=== PATIENT | male | born 1950 | race Caucasian/White ===

== ENCOUNTER → 2019-06-28 | Outpatient (CLI) | payer MEDICARE | END | disposition home or self-care (01) | LOC: SHCH 11:04 | PROVIDERS: ATTEND Internal Medicine Cardiovascular Disease | DX: I08.0 Rheumatic disorders of both mitral and aortic valves (principal); I25.10 Atherosclerotic heart disease of native coronary artery without angina pectoris; I42.9 Cardiomyopathy, unspecified; Z95.1 Presence of aortocoronary bypass graft | CPT/HCPCS: 93306 ==

== ENCOUNTER 2021-05-29 15:23 | Observation (INO) | payer MEDICARE ==
[~2021-05-29] VITALS: Ht 175.3 cm; Wt 78.3 kg
[2021-05-29] MEDS: FAMOTIDINE 20MG TAB PO SCH
[2021-05-29] MEDS ORDERED: DILTIAZEM 125 MG/25 ML INJ IV ONE (15:39)
[2021-05-29] MEDS ORDERED: 0.9%NACL 100ML 100 ML ONE (15:39)
[2021-05-29] MEDS ORDERED: DILTIAZEM 125 MG/25 ML INJ 125 MG in 0.9%NACL 100ML 100 ML IV SCH (16:00)
[2021-05-29] MEDS ORDERED: DILTIAZEM 25MG INJ IVP SCH (16:30)
[2021-05-29] MEDS ORDERED: DULA0.75 SQ (17:40)
[2021-05-29] MEDS ORDERED: DUTA0.5C37 PO (17:40)
[2021-05-29] MEDS ORDERED: MAGN500C15 PO (17:40)
[2021-05-29] MEDS ORDERED: ASPI-1005 PO (17:40)
[2021-05-29] MEDS ORDERED: TAMS-1 PO (17:40)
[2021-05-29] MEDS ORDERED: METF-446 PO (17:40)
[2021-05-29] MEDS ORDERED: ROSU20TA31 PO (17:40)
[2021-05-29] MEDS ORDERED: VIT1CAPS47 PO (17:40)
[2021-05-29] MEDS ORDERED: EZET10TA48 PO (17:40)
[2021-05-29] MEDS ORDERED: ENAL5TAB17 PO (17:40)
[2021-05-29] MEDS ORDERED: METO50TA18 PO (17:40)
[2021-05-29] MEDS ORDERED: MILK175C5 PO (17:40)
[2021-05-29] MEDS ORDERED: FISH1CAP27 PO (17:40)
[2021-05-29 18:26] LABS: BASOPHILS % (AUTO) 0.4 % (0.0-5.0); EOSINOPHILS % (AUTO) 0.7 % (0.0-8.0); HEMATOCRIT 40.9 % (42-54); LYMPHOCYTES % (AUTO) 26.7 % (21.0-51.0); MEAN CORPUSCULAR HEMOGLOBIN 29.5 pg (27.0-33.0); MEAN CORPUSCULAR HGB CONC 34.2 g/dL (32.0-36.0); MEAN CORPUSCULAR VOLUME 86.3 fL (79-99); MONOCYTES % (AUTO) 9.7 % (3.0-13.0); NEUTROPHILS % (AUTO) 62.3 % (40.0-77.0); PLATELET COUNT (AUTO) 145 K/uL (130-400); RED BLOOD CELL COUNT(AUTO) 4.74 MIL/uL (4.50-6.20); WHITE BLOOD COUNT (AUTO) 8.2 K/uL (4.8-10.8)
[2021-05-29 18:38] LABS: CREATININE 0.9 mg/dL (0.5-1.5); POTASSIUM 3.6 mmol/L (3.5-5.1)
[2021-05-29 18:39] LABS: INR 1.02 (0.85-1.15); PROTHROMBIN TIME 11.1 SEC (9.6-11.6)
[2021-05-29 18:43] LABS: ALBUMIN 3.3 g/dL (3.5-5.0); BILIRUBIN,TOTAL 0.4 mg/dL (0.2-1.0); TOTAL PROTEIN, SERUM 6.1 g/dL (6.0-8.3)
[2021-05-29] MEDS ORDERED: HEPARIN 5,000 UNIT VIAL IV PRN (20:30)
[2021-05-29] MEDS ORDERED: DEXTROSE 50%-WATER 50 ML DISP.SYRIN IV PRN (20:30)
[2021-05-29] MEDS ORDERED: GLUCAGON 1MG KIT 1 MG ML IM PRN (20:30)
[2021-05-29] MEDS ORDERED: HEPARIN 25000 UNITS/D5W 250ML IV SCH (20:30)
[2021-05-29] MEDS ORDERED: ONDANSETRON 4MG INJ IVP PRN (21:00)
[2021-05-29] MEDS ORDERED: ACETAMINOPHEN 325 MG TAB PO PRN (21:00)
[2021-05-29 22:40] LABS: INR 1.01 (0.85-1.15)
[2021-05-29 22:41] LABS: PARTIAL THROMBOPLASTIN TIME 26.5 SEC (26.3-35.5)
[2021-05-29] MEDS ORDERED: DILTIAZEM 60MG TAB ONE (23:26)
[2021-05-29] MEDS: INSULIN R PO SS1 SQ SCH (23:30)
[2021-05-30] VITALS (8 sets, daily range): BP systolic 142–160; BP diastolic 67–89
[2021-05-30] MEDS: 0.9%NACL 1000ML 1,000 ML IV SCH ×3 (00:20→23:10)
[2021-05-30] MEDS ORDERED: POTASSIUM PHOS 15 mMOL+NS250ML 250 ML IV PRN (06:00)
[2021-05-30 06:42] LABS: BASOPHILS % (AUTO) 0.5 % (0.0-5.0); EOSINOPHILS % (AUTO) 3.4 % (0.0-8.0); HEMATOCRIT 39.2 % (42-54); LYMPHOCYTES % (AUTO) 37.7 % (21.0-51.0); MEAN CORPUSCULAR HEMOGLOBIN 29.4 pg (27.0-33.0); MEAN CORPUSCULAR HGB CONC 34.2 g/dL (32.0-36.0); MONOCYTES % (AUTO) 10.7 % (3.0-13.0); NEUTROPHILS % (AUTO) 47.5 % (40.0-77.0); PLATELET COUNT (AUTO) 142 K/uL (130-400); RED BLOOD CELL COUNT(AUTO) 4.56 MIL/uL (4.50-6.20); RED CELL DISTRIBUTION WIDTH 12.9 % (11.0-15.5); WHITE BLOOD COUNT (AUTO) 5.6 K/uL (4.8-10.8)
[2021-05-30 07:01] LABS: ALBUMIN 3.2 g/dL (3.5-5.0); BILIRUBIN,TOTAL 0.6 mg/dL (0.2-1.0); CREATININE 0.6 mg/dL (0.5-1.5); MAGNESIUM 1.2 mg/dL (1.80-2.40); PHOSPHORUS 3.4 mg/dL (2.5-4.9); POTASSIUM 3.6 mmol/L (3.5-5.1); TOTAL PROTEIN, SERUM 5.9 g/dL (6.0-8.3)
[2021-05-30] MEDS: INSULIN R PO SS1 SQ SCH ×4 (07:30→20:52)
[2021-05-30] MEDS: FAMOTIDINE 20MG TAB PO SCH ×2 (07:37→20:46)
[2021-05-30] MEDS: MAGNESIUM 2GM PREMIX 50ML 50 ML IV PRN ×2 (08:30→11:46)
[2021-05-30] MEDS: METOPROLOL TARTRATE 50 MG TAB PO SCH ×2 (09:39→20:46)
[2021-05-30] MEDS ORDERED: IOHEXOL-350 75 ML VIAL IV ONE (15:02)
[2021-05-30] MEDS ORDERED: LIDOCAINE HCL 400MG/20ML VIAL ONE (15:02)
[2021-05-30] MEDS ORDERED: IOHEXOL 350 MG/ML 100ML INFUS..BTL IV ONE (15:02)
[2021-05-30] MEDS ORDERED: HEPARIN 10,000 UNIT/10ML (1,000 UNIT/ML) VIAL ONE (15:15)
[2021-05-30] MEDS ORDERED: MIDAZOLAM HCL 1 MG/ML 2ML VIAL ONE (15:26)
[2021-05-30] MEDS ORDERED: METO-408 PO (17:16)
[2021-05-31] VITALS: BP 161/89
[2021-05-31 04:00] VITALS: BP 150/83
[2021-05-31 06:05] LABS: HEMATOCRIT 42.4 % (42-54); MEAN CORPUSCULAR HEMOGLOBIN 29.7 pg (27.0-33.0); MEAN CORPUSCULAR HGB CONC 34.4 g/dL (32.0-36.0); MEAN CORPUSCULAR VOLUME 86.4 fL (79-99); RED BLOOD CELL COUNT(AUTO) 4.91 MIL/uL (4.50-6.20); RED CELL DISTRIBUTION WIDTH 13.1 % (11.0-15.5); WHITE BLOOD COUNT (AUTO) 6.5 K/uL (4.8-10.8)
[2021-05-31 06:19] LABS: CREATININE 0.7 mg/dL (0.5-1.5); MAGNESIUM 1.7 mg/dL (1.80-2.40); PHOSPHORUS 3.5 mg/dL (2.5-4.9); POTASSIUM 4.1 mmol/L (3.5-5.1)
[2021-05-31] MEDS: INSULIN R PO SS1 SQ SCH ×2 (07:30→11:27)
[2021-05-31 08:27] VITALS: BP 181/96
[2021-05-31] MEDS: METOPROLOL TARTRATE 50 MG TAB PO SCH (09:36)
[2021-05-31] MEDS: FAMOTIDINE 20MG TAB PO SCH (09:36)
[2021-05-31] MEDS: MAGNESIUM 2GM PREMIX 50ML 50 ML IV PRN (09:37)
[2021-05-31 11:30] VITALS: BP 157/78
[2021-05-31] MEDS ORDERED: METO50TA18 PO ×2 (11:33→13:36)
[2021-06-25] MEDS ORDERED: ROSU20TA23 PO (11:15)
== END 2021-05-31 19:18 | disposition home or self-care (01) ==
LOC: EDH 15:23 → EDHIP 18:21 → 4BH 05-30 16:33
PROVIDERS: ADMIT Internal Medicine Pulmonary Disease; ATTEND Internal Medicine Pulmonary Disease
DX: I48.20 Chronic atrial fibrillation, unspecified (principal); I25.10 Atherosclerotic heart disease of native coronary artery without angina pectoris; E11.9 Type 2 diabetes mellitus without complications; I10 Essential (primary) hypertension; E83.42 Hypomagnesemia; G47.33 Obstructive sleep apnea (adult) (pediatric); I47.1 Supraventricular tachycardia; I48.92 Unspecified atrial flutter; I35.0 Nonrheumatic aortic (valve) stenosis; E78.5 Hyperlipidemia, unspecified; R77.8 Other specified abnormalities of plasma proteins; R74.01 Elevation of levels of liver transaminase levels; Z68.25 Body mass index [BMI] 25.0-25.9, adult; Z95.1 Presence of aortocoronary bypass graft; Z79.84 Long term (current) use of oral hypoglycemic drugs
CPT/HCPCS: 36415 ×3; 71045; 80048; 80053 ×2; 82550; 82948 ×8; 83036; 83735 ×5; 83874; 84100 ×2; 84484 ×4; 85025 ×2; 85027; 85378; 85610 ×2; 85730 ×2; 93005 ×5; 93455; 96365; 96366 ×2; 96367; 96376; 99284; C1760; C1769; C1894; G0378 ×46; J1644 ×2; J2250; J3475 ×3; J3490 ×3; J7030 ×2; Q9965; Q9967; 96361; 99156; 99157

== ENCOUNTER 2021-06-26 07:55 | Day surgery (SDC) | payer MEDICARE ==
[2021-06-21 10:27] LABS: BASOPHILS % (AUTO) 0.6 % (0.0-5.0); EOSINOPHILS % (AUTO) 3.6 % (0.0-8.0); MEAN CORPUSCULAR HGB CONC 33.1 g/dL (32.0-36.0); MEAN CORPUSCULAR VOLUME 87.7 fL (79-99); MONOCYTES % (AUTO) 11.2 % (3.0-13.0); NEUTROPHILS % (AUTO) 52.3 % (40.0-77.0); PLATELET COUNT (AUTO) 146 K/uL (130-400); RED BLOOD CELL COUNT(AUTO) 5.13 MIL/uL (4.50-6.20); RED CELL DISTRIBUTION WIDTH 13.1 % (11.0-15.5); WHITE BLOOD COUNT (AUTO) 6.4 K/uL (4.8-10.8)
[2021-06-21 10:34] LABS: CREATININE 0.7 mg/dL (0.5-1.5); POTASSIUM 4.8 mmol/L (3.5-5.1)
[2021-06-21 10:37] LABS: INR 0.99 (0.85-1.15); PROTHROMBIN TIME 10.8 SEC (9.6-11.6)
[2021-06-21 10:38] LABS: PARTIAL THROMBOPLASTIN TIME 27.3 SEC (26.3-35.5)
[2021-06-25 09:49] VITALS: BP 94/56
[2021-06-26] VITALS (14 sets, daily range): BP systolic 102–128; BP diastolic 54–71
[~2021-06-26] VITALS: Ht 175.3 cm; Wt 80.9 kg
[~2021-06-26 07:55] MED LIST: 0.9% NACL 500ML IV.SOLN 500 ML IV SCH; ASPI-1005 PO; DULA0.75 SQ; DUTA0.5C37 PO; ENAL5TAB17 PO; EZET10TA48 PO; FISH1CAP27 PO; MAGN500C15 PO; METF-446 PO; METO50TA18 PO; MILK175C5 PO; ROSU20TA23 PO; TAMS-1 PO; VIT1CAPS47 PO
[2021-06-26] MEDS ORDERED: LIDOCAINE HCL 2% VISCOUS 15 ML UDCUP ONE (08:09)
[2021-06-26] MEDS ORDERED: 0.9%NACL 1000ML 1,000 ML IV ONE (08:09)
[2021-06-26] MEDS ORDERED: FENTANYL CITRATE PF 50 MCG/1 ML 2ML VIAL ONE (08:15)
[2021-06-26] MEDS ORDERED: NALOXONE HCL 0.4 MG/1 ML ML ONE (08:16)
[2021-06-26] MEDS ORDERED: FLUMAZENIL 0.1MG/1ML 5ML VIAL IV ONE (08:16)
[2021-06-26] MEDS ORDERED: MIDAZOLAM HCL 1 MG/ML 2ML VIAL ONE (08:16)
[2021-06-26] MEDS ORDERED: FENTANYL CITRATE PF 50 MCG/1 ML 2ML VIAL IVP ONE (13:00)
[2021-06-26] MEDS ORDERED: MIDAZOLAM HCL 1 MG/ML 5ML VIAL IVP ONE (13:00)
== END 2021-06-26 12:05 | disposition home or self-care (01) ==
LOC: DAH 07:55
PROVIDERS: ATTEND Internal Medicine Cardiovascular Disease
DX: I48.3 Typical atrial flutter (principal); I08.3 Combined rheumatic disorders of mitral, aortic and tricuspid valves; I25.5 Ischemic cardiomyopathy; I10 Essential (primary) hypertension; E78.5 Hyperlipidemia, unspecified; G47.30 Sleep apnea, unspecified; I25.709 Atherosclerosis of coronary artery bypass graft(s), unspecified, with unspecified angina pectoris; I25.119 Atherosclerotic heart disease of native coronary artery with unspecified angina pectoris; Z82.49 Family history of ischemic heart disease and other diseases of the circulatory system; Z83.3 Family history of diabetes mellitus; Z87.891 Personal history of nicotine dependence; Z98.890 Other specified postprocedural states; Z79.01 Long term (current) use of anticoagulants; Z95.1 Presence of aortocoronary bypass graft
CPT/HCPCS: 36415; 80048; 82948; 85025; 85610; 85730; 93005; 93312; A4215; A4216; A4221; A4222; A4223 ×3; A4606; A4663; J2250; J3010; J7030; 93313; 99152; 99156; J2310; J3490